=== PATIENT | female | born 1985 | race Caucasian/White ===

== ENCOUNTER 2022-07-02 16:56 | Inpatient (IN) | payer OTHER, SELFPAY ==
--- NOTE | ~2022-07-02 | CT_ITS ---
EXAMINATION: CT FOR WITH IV CONTRAST, LEFT CLINICAL INFORMATION: Rash to left forearm COMPARISON: None TECHNIQUE: 85 mL Omnipaque 350 intravenous contrast was utilized. Multidetector helical imaging was performed through the left forearm. Coronal and sagittal reformatted images were created. DOSE LOWERING TECHNIQUES: This CT examination was performed using dose optimization techniques as appropriate, variously including the following: - Automated exposure control - Adjustment of mA and/or kV according to patient size (this includes techniques or standardized protocols for targeted exams were dose is matched to indication/reason for exam; i.e. extremities or head) - Use of iterative reconstruction technique DLP: 167 mGy-cm FINDINGS: There is prominent subcutaneous edema along the dorsal forearm, especially the proximal to mid forearm with associated skin thickening, suspicious for cellulitis in the proper clinical setting. No discrete fluid collection is seen. No soft tissue gas or radiopaque foreign body identified. Osseous alignment is anatomic. No acute fracture is seen. CT/CT forearm LT w IV con IMPRESSION: Prominent subcutaneous edema along the dorsal forearm, especially the proximal to mid forearm, suspicious for cellulitis in the proper clinical setting. No discrete fluid collection identified.
[2022-07-02 17:02] VITALS: BP 127/82; PULSE 94; RESP 18; TEMP 36.7; O2SAT 97; BMI 37.0
--- NOTE | 2022-07-02 17:02 | ED_ITS ---
HPI - General Adult General Chief complaint: Skin/Abscess/Foreign Body <DEBORAH Pinzon - Last Filed: 07/02/22 18:49> Stated complaint: infection on arm? <DEBORAH Pinzon - Last Filed: 07/02/22 18:49> Time Seen by Provider: 07/02/22 20:26 <DEBORAH Pinzon Last Filed: 07/02/22 18:49> Source: patient <DEBORAH Bronson - Last Filed: 07/02/22 23:10> Mode of arrival: ambulatory <DEBORAH Bronson Last Filed: 07/02/22 23:10> Limitations: no limitations <DEBORAH Bronson Last Filed: 07/02/22 23:10> History of Present Illness HPI narrative: This is a 37-year-old female history of IV drug abuse presenting to the emergency department with complaints of infection to left arm, patient reports associated pain, swelling and warmth overlying left arm, patient tells me about 3 days ago she picked a small area of skin to her left arm was a scab, since then she thinks that got infected. She was seen yesterday at [facility] was given IV antibiotics and had an a upper extremity ultrasound done to left upper extremity, she tells me it did not show any findings. Patient was started on Bactrim and the area of cellulitis was outlined with a marker, patient reports it is getting worse despite antibiotics. While in the ED there she got IV antibotics. Unknown if patient has history of MRSA. Patient reports fevers, chills, fatigue and malaise. Denies chest pain, shortness of breath, nausea, vomiting, abdominal pain, headache, vision changes, dizziness and weakness. <DEBORAH Bronson Last Filed: 07/02/22 23:10> Related Data Home medications: Home Medications Medication Instructions Recorded Confirmed acetaminophen 500 mg tablet 1,000 mg PO QID PRN Headache 07/02/22 07/02/22 buprenorphine HCl 8 mg sublingual 2 tab sublingual DAILY 07/02/22 07/02/22 tablet ibuprofen 200 mg tablet 400 mg PO Q6H PRN Headache 07/02/22 07/02/22 <DEBORAH Pinzon Last Filed: 07/02/22 18:49> Allergies/adverse reactions: Allergies Allergy/AdvReac Type Severity Reaction Status Date / Time No Known Allergies Allergy Unverified 01/20/20 17:39 <DEBORAH Pinzon - Last Filed: 07/02/22 18:49> Review of Systems Review of Systems: Constitutional : No Weight loss, + Fever, + Chills, + F atigue, + Malaise ENT/Mouth : No sore throat, No Rhinorrhea Eyes: No Eye Pain, No Swelling, No Redness Cardiovascular : No Chest Pain, No SOB, No Dyspnea on Exertion, No Orthopnea, No Edema, No Palpitations Respiratory : No Cough, No Sputum, No Wheezing Gastrointestinal : No Nausea, No Vomiting, No Diarrhea, No Constipation, No abdominal Pain, No Hematochezia, No Melena Genitourinary : No Dysuria, No Urinary Frequency, No Hematuria, Musculoskeletal : No joint pain, No Myalgias, No Joint Swelling Skin : No Skin Lesions, + rash Neuro : No Weakness, No Numbness, No Dizziness, No Headache Psych : No Anxiety/Panic, No Depression All other systems reviewed and are negative <DEBORAH Bronson - Last Filed: 07/02/22 23:10> Yes all other systems are reviewed and are negative <DEBORAH Bronson - Last Filed: 07/02/22 23:10> [facility] Past Medical History Attestation statement: The following information was validated with the patient. <DEBORAH Bronson - Last Filed: 07/02/22 23:10> Source: old records reviewed and nursing notes reviewed <DEBORAH Bronson - Last Filed: 07/02/22 23:10> Medical History: Medical History IV drug user <DEBORAH Pinzon - Last Filed: 07/02/22 18:49> Social History Social History: Social History Advance Directives: No Advance Directives Information Provided: Yes <DEBORAH Pinzon - Last Filed: 07/02/22 18:49> Physical Exam ED Vital Signs: Vital Signs - 24 hr 07/02/22 17:02 Temperature 98.0 F Pulse Rate 94 Respiratory Rate 18 Blood Pressure 127/82 Pulse Oximetry 97 Oxygen Delivery Method Room Air BMI result Body Mass Index 37.0 <DEBORAH Pinzon - Last Filed: 07/02/22 18:49> Vital Signs - 24 hr 07/02/22 17:02 Temperature 98.0 F Pulse Rate 94 Respiratory Rate 18 Blood Pressure 127/82 Pulse Oximetry 97 Oxygen Delivery Method Room Air BMI result Body Mass Index 37.0 vss <DEBORAH Bronson - Last Filed: 07/02/22 23:10> Vital Signs - 24 hr 07/02/22 17:02 Temperature 98.0 F Pulse Rate 94 Respiratory Rate 18 Blood Pressure 127/82 Pulse Oximetry 97 Oxygen Delivery Method Room Air BMI result Body Mass Index 37.0 <Chnada Butler MD - Last Filed: 07/02/22 22:23> Appearance: Alert.? Oriented X3.? No acute distress.? Head: Normocephalic, atraumatic, no step-offs or deformities Eyes: Pupils equal, round and reactive to light.? ENT: Pharynx normal.? Neck: Normal inspection.? Neck supple.? CVS: Normal heart rate and rhythm.? Pulses normal.? Respiratory: No respiratory distress.? Breath sounds normal.? Abdomen: Soft and nontender.? Skin: Skin warm and dry.? Normal skin color.? Normal skin turgor.? Extremities: No lower extremity edema.? No calf ttp. 5/5 strength to bilateral upper and lower extremities. 3+ nonpitting edema to left forearm from left elbow to wrist. There is cellulitis with overlying warmth overlying the left forearm. Images below 2+ radial pulses equal bilateral. Capillary refill to bilateral upper extremities less than 2 seconds. No wrist drop. Left arm does appear more swollen when compared to the right arm. There is cellulitis noted to the left upper extremity. Back: No midline tenderness, no C-spine tenderness, full range of motion, no CVA tenderness bilaterally Neuro: Oriented X 3.? No motor deficit.? No sensory deficit. CN 2-12 intact <DEBORAH Bronson - Last Filed: 07/02/22 23:10> Course Course Course Narrative: RME-- 37yo F w/PMHx IVDA c/o increasing left arm pain, swelling, erythema and fever x3 days s/p picking area on skin. Admits was seen at [facility] yesterday, given IV abx and had UE US that was negative for DVT. Admits currently taking Bactrim prescribed yesterday, states area crossing lines created/increasing pain Labs including lactic/blood cultures ordered. Will request records from [facility] Received records from [facility] patient had a leukocytosis of 18.2 yesterday & Left upper extremity venous duplex ultrasound was negative for DVT <DEBORAH Pinzon - Last Filed: 07/02/22 18:49> Reevaluation(s) Reevaluation #1: CBC with leukocytosis likely secondary to cellulitis of left arm. Chemistry with no acute findings requiring intervention. Lactic negative. Coags within normal limits. Patient to be admitted to the hospitalist for further evaluation and treatment. I did order Zosyn and vanco. Hospitalist requested upper extremity CT scan which has been ordered and pending at this hola e. At this time patient will be admitted to the hospital for further evaluation and treatment. <DEBORAH Bronson - Last Filed: 07/02/22 23:10> Time: 23:09 <DEBORAH Bronson - Last Filed: 07/02/22 23:10> Medications Administered Generic Name Dose Route Start Last Admin Trade Name Freq PRN Reason Stop Dose Admin Enoxaparin Sodium 40 mg 07/02/22 22:00 07/02/22 23:01 Enoxaparin Sodium 40 Mg/0.4 Ml Syringe SUBCUT 40 mg Q24H FRED Administration Cefepime HCl 2 gm/ Sodium 50 mls @ 100 mls/hr 07/02/22 22:00 07/02/22 23:04 Chloride IV 100 mls/hr Q8H FRED Administration Discontinued Medications Generic Name Dose Route Start Last Admin Trade Name Freq PRN Reason Stop Dose Admin Piperacillin Sod/Tazobactam 50 mls @ 100 mls/hr 07/02/22 20:37 07/02/22 23:06 Sod 3.375 gm/ Sodium Chloride IV 07/02/22 21:06 100 mls/hr ONCE ONE Infusion Sodium Chloride 2,667.12 mls @ 2,667.12 mls/hr 07/02/22 21:51 07/02/22 22:45 Ns 30 ml/kg infuse over 1 hr (2667.12 ml) 07/02/22 22:50 2,667.12 mls/hr IV Administration .Q1H STA <DEBORAH Pinzon - Last Filed: 07/02/22 18:49> Medications Administered Generic Name Dose Route Start Last Admin Trade Name Freq PRN Reason Stop Dose Admin Enoxaparin Sodium 40 mg 07/02/22 22:00 07/02/22 23:01 Enoxaparin Sodium 40 Mg/0.4 Ml Syringe SUBCUT 40 mg Q24H FRED Administration Cefepime HCl 2 gm/ Sodium 50 mls @ 100 mls/hr 07/02/22 22:00 07/02/22 23:04 Chloride IV 100 mls/hr Q8H FRED Administration Discontinued Medications Generic Name Dose Route Start Last Admin Trade Name Freq PRN Reason Stop Dose Admin Piperacillin Sod/Tazobactam 50 mls @ 100 mls/hr 07/02/22 20:37 07/02/22 23:06 Sod 3.375 gm/ Sodium Chloride IV 07/02/22 21:06 100 mls/hr ONCE ONE Infusion Sodium Chloride 2,667.12 mls @ 2,667.12 mls/hr 07/02/22 21:51 07/02/22 22:45 Ns 30 ml/kg infuse over 1 hr (2667.12 ml) 07/02/22 22:50 2,667.12 mls/hr IV Administration .Q1H STA <DEBORAH Bronson - Last Filed: 07/02/22 23:10> Medications Administered Generic Name Dose Route Start Last Admin Trade Name Freq PRN Reason Stop Dose Admin Enoxaparin Sodium 40 mg 07/02/22 22:00 07/02/22 23:01 Enoxaparin Sodium 40 Mg/0.4 Ml Syringe SUBCUT 40 mg Q24H FRED Administration Cefepime HCl 2 gm/ Sodium 50 mls @ 100 mls/hr 07/02/22 22:00 07/02/22 23:04 Chloride IV 100 mls/hr Q8H FRED Administration Discontinued Medications Generic Name Dose Route Start Last Admin Trade Name Freq PRN Reason Stop Dose Admin Piperacillin Sod/Tazobactam 50 mls @ 100 mls/hr 07/02/22 20:37 07/02/22 23:06 Sod 3.375 gm/ Sodium Chloride IV 07/02/22 21:06 100 mls/hr ONCE ONE Infusion Sodium Chloride 2,667.12 mls @ 2,667.12 mls/hr 07/02/22 21:51 07/02/22 22:45 Ns 30 ml/kg infuse over 1 hr (2667.12 ml) 07/02/22 22:50 2,667.12 mls/hr IV Administration .Q1H STA <Chanda Butler MD - Last Filed: 07/02/22 22:23> Procedures EJ/Peripheral Line Arm R: Time Out Performed: No <Chanda Butler MD - Last Filed: 07/02/22 22:23> Skin Cleansed in Sterile Fashion: Yes <Chanda Butler MD - Last Filed: 07/02/22 22:23> Size (gauge): 18 <Chanda Butler MD - Last Filed: 07/02/22 22:23> IV Secured and Dressing Applied: Yes <Chanda Butler MD - Last Filed: 07/02/22 22:23> Patient Tolerated Procedure: well <Chanda Butler MD - Last Filed: 07/02/22 22:23> Additional Comments: This peripheral line was placed via ultrasound guidance <Chanda Butler MD - Last Filed: 07/02/22 22:23> Medical Decision Making Medical Decision Making [facility] Narrative: 2035 37-year-old female presents with cellulitis left upper extremity, worsening despite p.o. antibiotics. History of IV drug abuse. Unknown MRSA history. Physical exam significant for 3+ nonpitting edema to left forearm from left elbow to wrist. There is cellulitis with overlying warmth overlying the left forearm. Images in the chart. Records from [facility] were obtained and patient had a leukocytosis of 18.2 yesterday & Left upper extremity venous duplex ultrasound was negative for DVT Concerns cellulitis that has failed p.o. therapy, unlikely threatened limb, necrotizing infection, gangrene, necrosis, osteomyelitis no signs of septic joint at this time. Plan labs, blood cultures, lactic acid. Will order antibiotics. <DEBORAH Bronson - Last Filed: 07/02/22 23:10> Differential Diagnosis Differential Diagnoses: The differential diagnosis associated with the presentation includes <DEBORAH Bronson - Last Filed: 07/02/22 23:10> Concerns for cellulitis that has failed p.o. therapy, unlikely threatened limb, necrotizing infection, gangrene, necrosis, osteomyelitis no signs of septic joint at this time. <DEBORAH Bronson - Last Filed: 07/02/22 23:10> Admission/Observation Consideration of admission/observation: Escalation of care including admission/observation considered <DEBORAH Bronson - Last Filed: 07/02/22 23:10> Likely <DEBORAH Bronson - Last Filed: 07/02/22 23:10> Lab Data MDM Lab Attestation statement: I reviewed the patient's lab results. <DEBORAH Bronson - Last Filed: 07/02/22 23:10> Result Diagrams: 07/02/22 18:23 07/02/22 18:23 <DEBORAH Pinzon - Last Filed: 07/02/22 18:49> Labs: Lab Results 07/02/22 07/02/22 07/02/22 Range/Units 18:23 18:23 22:36 WBC 13.0 H (4.8-10.8) X10*3/uL RBC 4.71 (4.20-5.50) X10*6/uL Hgb 12.9 (12.0-16.0) g/dl Hct 39.2 (37.0-47.0) % MCV 83.2 (80.0-98.0) fL MCH 27.4 (27.0-33.0) pg MCHC 32.9 (31.0-35.0) g/dl RDW 13.1 (11.0-16.0) % Plt Count 214 (160-400) X10*3/uL MPV 9.9 (9.4-12.3) fL Immature Gran % (Auto) 0.3 (0.0-0.4) % Neut % (Auto) 76.1 H (45-73) % Lymph % (Auto) 16.7 L (20-40) % [place] % (Auto) 6.5 (2-11) % Eos % (Auto) 0.2 (0-4) % Baso % (Auto) 0.2 (0-2) % Lymph # (Auto) 2.2 (1.2-4.9) X10*3/uL [place] # (Auto) 0.8 (0.1-1.2) X10*3/uL Eos # (Auto) 0.0 (0.0-0.4) X10*3/uL Baso # (Auto) 0.0 (0.0-0.2) X10*3/uL Abs Immat Gran (auto) 0.04 H (0.00-0.03) X10*3/uL Absolute Neuts (auto) 9.9 H (2.0-8.3) x10*3/uL Absolute Nucleated RBC 0.000 (0.0-0.012) X10*3/uL Nucleated RBC % (auto) 0.0 (0.0-0.2) /100WBC PT 14.4 H (10.0-13.1) SEC INR 1.2 H (0.9-1.1) Sodium 136 (135-145) mmol/L Potassium 4.5 (3.3-5.1) mmol/L Chloride 106 (96-108) mmol/L Carbon Dioxide 18 L (22-29) mmol/L Anion Gap 17 (12-20) BUN 8 L (9-16) mg/dL Creatinine 0.65 (0.5-1.4) mg/dL Estim Creat Clear Calc 121.3 Estimated GFR > 60 Random Glucose 93 (60-115) mg/dL Lactic Acid (0.5-2.0) mmol/L Calcium 9.0 (8.4-10.2) mg/dL Total Bilirubin 0.4 (0.0-1.0) mg/dL Direct Bilirubin < 0.2 (0.0-0.5) mg/dL AST 24 (5-31) U/L ALT 13 (0-31) U/L Alkaline Phosphatase 103 (39-117) U/L Total Protein 7.0 (6.5-8.0) g/dL Albumin 3.8 (3.5-5.0) g/dL 07/02/22 Range/Units 22:36 WBC (4.8-10.8) X10*3/uL RBC (4.20-5.50) X10*6/uL Hgb (12.0-16.0) g/dl Hct (37.0-47.0) % MCV (80.0-98.0) fL MCH (27.0-33.0) pg MCHC (31.0-35.0) g/dl RDW (11.0-16.0) % Plt Count (160-400) X10*3/uL MPV (9.4-12.3) fL Immature Gran % (Auto) (0.0-0.4) % Neut % (Auto) (45-73) % Lymph % (Auto) (20-40) % [place] % (Auto) (2-11) % Eos % (Auto) (0-4) % Baso % (Auto) (0-2) % Lymph # (Auto) (1.2-4.9) X10*3/uL [place] # (Auto) (0.1-1.2) X10*3/uL Eos # (Auto) (0.0-0.4) X10*3/uL Baso # (Auto) (0.0-0.2) X10*3/uL Abs Immat Gran (auto) (0.00-0.03) X10*3/uL Absolute Neuts (auto) (2.0-8.3) x10*3/uL Absolute Nucleated RBC (0.0-0.012) X10*3/uL Nucleated RBC % (auto) (0.0-0.2) /100WBC PT (10.0-13.1) SEC INR (0.9-1.1) Sodium (135-145) mmol/L Potassium (3.3-5.1) mmol/L Chloride (96-108) mmol/L Carbon Dioxide (22-29) mmol/L Anion Gap (12-20) BUN (9-16) mg/dL Creatinine (0.5-1.4) mg/dL Estim Creat Clear Calc Estimated GFR Random Glucose (60-115) mg/dL Lactic Acid 1.1 (0.5-2.0) mmol/L Calcium (8.4-10.2) mg/dL Total Bilirubin (0.0-1.0) mg/dL Direct Bilirubin (0.0-0.5) mg/dL AST (5-31) U/L ALT (0-31) U/L Alkaline Phosphatase (39-117) U/L Total Protein (6.5-8.0) g/dL Albumin (3.5-5.0) g/dL <DEBORAH Pinzon - Last Filed: 07/02/22 18:49> Lab Results 07/02/22 07/02/22 07/02/22 Range/Units 18:23 18: 22:36 WBC 13.0 H (4.8-10.8) X10*3/uL RBC 4.71 (4.20-5.50) X10*6/uL Hgb 12.9 (12.0-16.0) g/dl Hct 39.2 (37.0-47.0) % MCV 83.2 (80.0-98.0) fL MCH 27.4 (27.0-33.0) pg MCHC 32.9 (31.0-35.0) g/dl RDW 13.1 (11.0-16.0) % Plt Count 214 (160-400) X10*3/uL MPV 9.9 (9.4-12.3) fL Immature Gran % (Auto) 0.3 (0.0-0.4) % Neut % (Auto) 76.1 H (45-73) % Lymph % (Auto) 16.7 L (20-40) % [place] % (Auto) 6.5 (2-11) % Eos % (Auto) 0.2 (0-4) % Baso % (Auto) 0.2 (0-2) % Lymph # (Auto) 2.2 (1.2-4.9) X10*3/uL [place] # (Auto) 0.8 (0.1-1.2) X10*3/uL Eos # (Auto) 0.0 (0.0-0.4) X10*3/uL Baso # (Auto) 0.0 (0.0-0.2) X10*3/uL Abs Immat Gran (auto) 0.04 H (0.00-0.03) X10*3/uL Absolute Neuts (auto) 9.9 H (2.0-8.3) x10*3/uL Absolute Nucleated RBC 0.000 (0.0-0.012) X10*3/uL Nucleated RBC % (auto) 0.0 (0.0-0.2) /100WBC PT 14.4 H (10.0-13.1) SEC INR 1.2 H (0.9-1.1) Sodium 136 (135-145) mmol/L Potassium 4.5 (3.3-5.1) mmol/L Chloride 106 (96-108) mmol/L Carbon Dioxide 18 L (22-29) mmol/L Anion Gap 17 (12-20) BUN 8 L (9-16) mg/dL Creatinine 0.65 (0.5-1.4) mg/dL Estim Creat Clear Calc 121.3 Estimated GFR > 60 Random Glucose 93 (60-115) mg/dL Lactic Acid (0.5-2.0) mmol/L Calcium 9.0 (8.4-10.2) mg/dL Total Bilirubin 0.4 (0.0-1.0) mg/dL Direct Bilirubin < 0.2 (0.0-0.5) mg/dL AST 24 (5-31) U/L ALT 13 (0-31) U/L Alkaline Phosphatase 103 (39-117) U/L Total Protein 7.0 (6.5-8.0) g/dL Albumin 3.8 (3.5-5.0) g/dL 07/02/22 Range/Units 22:36 WBC (4.8-10.8) X10*3/uL RBC (4.20-5.50) X10*6/uL Hgb (12.0-16.0) g/dl Hct (37.0-47.0) % MCV (80.0-98.0) fL MCH (27.0-33.0) pg MCHC (31.0-35.0) g/dl RDW (11.0-16.0) % Plt Count (160-400) X10*3/uL MPV (9.4-12.3) fL Immature Gran % (Auto) (0.0-0.4) % Neut % (Auto) (45-73) % Lymph % (Auto) (20-40) % [place] % (Auto) (2-11) % Eos % (Auto) (0-4) % Baso % (Auto) (0-2) % Lymph # (Auto) (1.2-4.9) X10*3/uL [place] # (Auto) (0.1-1.2) X10*3/uL Eos # (Auto) (0.0-0.4) X10*3/uL Baso # (Auto) (0.0-0.2) X10*3/uL Abs Immat Gran (auto) (0.00-0.03) X10*3/uL Absolute Neuts (auto) (2.0-8.3) x10*3/uL Absolute Nucleated RBC (0.0-0.012) X10*3/uL Nucleated RBC % (auto) (0.0-0.2) /100WBC PT (10.0-13.1) SEC INR (0.9-1.1) Sodium (135-145) mmol/L Potassium (3.3-5.1) mmol/L Chloride (96-108) mmol/L Carbon Dioxide (22-29) mmol/L Anion Gap (12-20) BUN (9-16) mg/dL Creatinine (0.5-1.4) mg/dL Estim Creat Clear Calc Estimated GFR Random Glucose (60-115) mg/dL Lactic Acid 1.1 (0.5-2.0) mmol/L Calcium (8.4-10.2) mg/dL Total Bilirubin (0.0-1.0) mg/dL Direct Bilirubin (0.0-0.5) mg/dL AST (5-31) U/L ALT (0-31) U/L Alkaline Phosphatase (39-117) U/L Total Protein (6.5-8.0) g/dL Albumin (3.5-5.0) g/dL <DEBORAH Bronson - Last Filed: 07/02/22 23:10> Lab Results 07/02/22 07/02/22 07/02/22 Range/Units 18:23 18:23 22:36 WBC 13.0 H (4.8-10.8) X10*3/uL RBC 4.71 (4.20-5.50) X10*6/uL Hgb 12.9 (12.0-16.0) g/dl Hct 39.2 (37.0-47.0) % MCV 83.2 (80.0-98.0) fL MCH 27.4 (27.0-33.0) pg MCHC 32.9 (31.0-35.0) g/dl RDW 13.1 (11.0-16.0) % Plt Count 214 (160-400) X10*3/uL MPV 9.9 (9.4-12.3) fL Immature Gran % (Auto) 0.3 (0.0-0.4) % Neut % (Auto) 76.1 H (45-73) % Lymph % (Auto) 16.7 L (20-40) % [place] % (Auto) 6.5 (2-11) % Eos % (Auto) 0.2 (0-4) % Baso % (Auto) 0.2 (0-2) % Lymph # (Auto) 2.2 (1.2-4.9) X10*3/uL [place] # (Auto) 0.8 (0.1-1.2) X10*3/uL Eos # (Auto) 0.0 (0.0-0.4) X10*3/uL Baso # (Auto) 0.0 (0.0-0.2) X10*3/uL Abs Immat Gran (auto) 0.04 H (0.00-0.03) X10*3/uL Absolute Neuts (auto) 9.9 H (2.0-8.3) x10*3/uL Absolute Nucleated RBC 0.000 (0.0-0.012) X10*3/uL Nucleated RBC % (auto) 0.0 (0.0-0.2) /100WBC PT 14.4 H (10.0-13.1) SEC INR 1.2 H (0.9-1.1) Sodium 136 (135-145) mmol/L Potassium 4.5 (3.3-5.1) mmol/L Chloride 106 (96-108) mmol/L Carbon Dioxide 18 L (22-29) mmol/L Anion Gap 17 (12-20) BUN 8 L (9-16) mg/dL Creatinine 0.65 (0.5-1.4) mg/dL Estim Creat Clear Calc 121.3 Estimated GFR > 60 Random Glucose 93 (60-115) mg/dL Lactic Acid (0.5-2.0) mmol/L Calcium 9.0 (8.4-10.2) mg/dL Total Bilirubin 0.4 (0.0-1.0) mg/dL Direct Bilirubin < 0.2 (0.0-0.5) mg/dL AST 24 (5-31) U/L ALT 13 (0-31) U/L Alkaline Phosphatase 103 (39-117) U/L Total Protein 7.0 (6.5-8.0) g/dL Albumin 3.8 (3.5-5.0) g/dL 07/02/22 Range/Units 22:36 WBC (4.8-10.8) X10*3/uL RBC (4.20-5.50) X10*6/uL Hgb (12.0-16.0) g/dl Hct (37.0-47.0) % MCV (80.0-98.0) fL MCH (27.0-33.0) pg MCHC (31.0-35.0) g/dl RDW (11.0-16.0) % Plt Count (160-400) X10*3/uL MPV (9.4-12.3) fL Immature Gran % (Auto) (0.0-0.4) % Neut % (Auto) (45-73) % Lymph % (Auto) (20-40) % [place] % (Auto) (2-11) % Eos % (Auto) (0-4) % Baso % (Auto) (0-2) % Lymph # (Auto) (1.2-4.9) X10*3/uL [place] # (Auto) (0.1-1.2) X10*3/uL Eos # (Auto) (0.0-0.4) X10*3/uL Baso # (Auto) (0.0-0.2) X10*3/uL Abs Immat Gran (auto) (0.00-0.03) X10*3/uL Absolute Neuts (auto) (2.0-8.3) x10*3/uL Absolute Nucleated RBC (0.0-0.012) X10*3/uL Nucleated RBC % (auto) (0.0-0.2) /100WBC PT (10.0-13.1) SEC INR (0.9-1.1) Sodium (135-145) mmol/L Potassium (3.3-5.1) mmol/L Chloride (96-108) mmol/L Carbon Dioxide (22-29) mmol/L Anion Gap (12-20) BUN (9-16) mg/dL Creatinine (0.5-1.4) mg/dL Estim Creat Clear Calc Estimated GFR Random Glucose (60-115) mg/dL Lactic Acid 1.1 (0.5-2.0) mmol/L Calcium (8.4-10.2) mg/dL Total Bilirubin (0.0-1.0) mg/dL Direct Bilirubin (0.0-0.5) mg/dL AST (5-31) U/L ALT (0-31) U/L Alkaline Phosphatase (39-117) U/L Total Protein (6.5-8.0) g/dL Albumin (3.5-5.0) g/dL <Chanda Butler MD - Last Filed: 07/02/22 22:23> Core Measures AMI core measures followed: Yes <DEBORAH Bronson - Last Filed: 07/02/22 23:10> Measure exclusions: not indicated <DEBORAH Bronson - Last Filed: 07/02/22 23:10> Critical Care Time Critical Care Time Critical Care Time: No <DEBORAH Bronson - Last Filed: 07/02/22 23:10> Discharge Plan Discharge Clinical Impression: Cellulitis <DEBORAH Pinzon - Last Filed: 07/02/22 18:49> Patient Disposition: Still a Patient <DEBORAH Pinzon - Last Filed: 07/02/22 18:49> Prescriptions: No Action acetaminophen [Tylenol Ex Str Rapid Release] 500 mg Tablet 1,000 mg PO QID PRN (Reason: Headache) ibuprofen 200 mg Tablet 400 mg PO Q6H PRN (Reason: Headache) buprenorphine HCl 8 mg tablet, sublingual 2 tab sublingual DAILY <DEBORAH Pinzon - Last Filed: 07/02/22 18:49>
[2022-07-02 18:26] LABS: MANUAL DIFF FLAG NO
[2022-07-02 18:29] LABS: Basophils Percent Auto 0.2 % (0-2); Eosinophils Percent Auto 0.2 % (0-4); Hematocrit 39.2 % (37.0-47.0); Hemoglobin 12.9 g/dl (12.0-16.0); Imm Gran Abs Auto 0.04 X10*3/uL (0.00-0.03); Imm Gran Pct Auto 0.3 % (0.0-0.4); Lymphocytes Absolute Auto 2.2 X10*3/uL (1.2-4.9); Lymphocytes Percent Auto 16.7 % (20-40); Mean Corpuscular HGB Conc 32.9 g/dl (31.0-35.0); Mean Corpuscular Hemoglobin 27.4 pg (27.0-33.0); Mean Corpuscular Volume 83.2 fL (80.0-98.0); Mean Platelet Volume 9.9 fL (9.4-12.3); Monocytes Absolute Auto 0.8 X10*3/uL (0.1-1.2); Monocytes Percent Auto 6.5 % (2-11); Neutrophils Absolute Auto 9.9 x10*3/uL (2.0-8.3); Neutrophils Percent Auto 76.1 % (45-73); Platelet Count 214 X10*3/uL (160-400); Red Blood Count 4.71 X10*6/uL (4.20-5.50); Red Cell Distribution Width 13.1 % (11.0-16.0)
[2022-07-02 18:42] LABS: Alanine Aminotransferase 13 U/L (0-31); Albumin Level 3.8 g/dL (3.5-5.0); Alkaline Phosphatase 103 U/L (39-117); Anion Gap 17 (12-20); Aspartate Amino Transferase 24 U/L (5-31); Bilirubin Direct < 0.2 mg/dL (0.0-0.5); Bilirubin Total 0.4 mg/dL (0.0-1.0); Blood Urea Nitrogen 8 mg/dL (9-16); Carbon Dioxide 18 mmol/L (22-29); Chloride 106 mmol/L (96-108); Creatinine Clr Calc Pharmacy 121.3; Estimated Glomerular Filt Rate > 60; Glucose Random 93 mg/dL (60-115); Potassium 4.5 mmol/L (3.3-5.1); Sodium 136 mmol/L (135-145)
--- NOTE | 2022-07-02 21:54 | PM.IMHP ---
History of Present Illness Date of Service: 07/02/22 Chief Complaint: Left arm infection this is a 37-year-old female with pertinent history of previous IV drug use who presents to the emergency department evaluation of left arm swelling/ pain / redness. Patient states she picked a small area of skin about 2-3 days ago and since then it has become swollen, red and tender. Patient also has been having fevers and chills at home. She was seen yesterday at [facility] and was given 1 dose of IV antibiotics and discharged on Bactrim. Patient states it has worsened even though she is compliant with oral antibiotics. No previous infections. Patient states her last IV drug use was a few years ago. Unknown history of MRSA. Patient denies nausea, vomiting, chest discomfort, palpitations, shortness of breath, abdominal pain, changes in urinary or bowel habits. In the emergency department, patient was found to be septic Review of Systems Constitutional: Constitutional: Reports chills and Reports fever(s) Cardiovascular: Cardiovascular: Reports no additional cardiovascular complaints Respiratory: Respiratory: Reports no additional respiratory complaints Gastrointestinal: Gastrointestinal: Reports no additional gastrointestinal complaints Genitourinary: Genitourinary: Reports no additional female genitourinary complaints [facility] Medical History IV drug user Functional capacity: independent ambulation Pertinent family history: no family history of CAD Social History Advance Directives: No Advance Directives Information Provided: Yes Meds Allergies Allergy/AdvReac Type Severity Reaction Status Date / Time No Known Allergies Allergy Unverified 01/20/20 17:39 Active Medications: Current Medications Acetaminophen (Acetaminophen 325 Mg Tablet) 650 mg PO Q6H PRN PRN Reason: Pain, Mild (Pain Scale 1-3) Enoxaparin Sodium (Enoxaparin Sodium 40 Mg/0.4 Ml Syringe) 40 mg SUBCUT Q24H FRED Vancomycin HCl (Vancomycin/Ns) 2,000 mg in 520 mls @ 260 mls/hr IV ONCE ONE Stop: 07/02/22 22:36 Sodium Chloride (Ns) 2,667.12 mls @ 2,667.12 mls/hr 30 ml/kg infuse over 1 hr (2667.12 ml) IV .Q1H STA Stop: 07/02/22 22:50 Melatonin (Melatonin 3 Mg Tablet) 6 mg PO BEDTIME PRN PRN Reason: Insomnia Ondansetron HCl (Ondansetron Hcl 4 Mg/2 Ml Vial) 4 mg IVPUSH Q8H PRN PRN Reason: Nausea and Vomiting Sodium Chloride (0.9 % Sodium Chloride Flush 3 Ml Syringe) 3 ml IVFLUSH QSHIFT [facility] Home Medications Medication Instructions Recorded Confirmed Last Taken Type acetaminophen 500 mg tablet 1,000 mg PO QID PRN Headache 07/02/22 07/02/22 07/02/22 History buprenorphine HCl 8 mg sublingual 2 tab sublingual DAILY 07/02/22 07/02/22 07/02/22 History tablet ibuprofen 200 mg tablet 400 mg PO Q6H PRN Headache 07/02/22 07/02/22 07/02/22 History Physical Exam Vital Signs and Narrative: Vital Signs: Last Vital Signs Temp 98.0 F 07/02/22 17:02 Pulse 94 07/02/22 17:02 Resp 18 07/02/22 17:02 BP 127/82 07/02/22 17:02 Pulse Ox 97 07/02/22 17:02 O2 Del Method 07/02/22 17:02 BMI result Body Mass Index 37.0 Middle-aged female lying in bed in no distress Neck supple, no JVD Regular rate and rhythm, S1-S2 heard Regular breath sounds bilaterally, no wheezing or crackles appreciated Abdomen soft nontender, no guarding, no rigidity Patient is awake, alert and oriented to self, place, time and person ; no focal motor deficit left arm with tenderness, erythema and swelling Psych: Normal mood No pedal edema Results Labs 07/02/22 18:23 07/02/22 18:23 Labs: Laboratory Results - last 24 hr 07/02/22 07/02/22 18:23 18:23 MCV 83.2 MCH 27.4 MCHC 32.9 RDW 13.1 Plt Count 214 MPV 9.9 Immature Gran % (Auto) 0.3 Neut % (Auto) 76.1 H Lymph % (Auto) 16.7 L [place] % (Auto) 6.5 Eos % (Auto) 0.2 Baso % (Auto) 0.2 Lymph # (Auto) 2.2 [place] # (Auto) 0.8 Eos # (Auto) 0.0 Baso # (Auto) 0.0 Abs Immat Gran (auto) 0.04 H Absolute Neuts (auto) 9.9 H Absolute Nucleated RBC 0.000 Nucleated RBC % (auto) 0.0 Anion Gap 17 Estim Creat Clear Calc 121.3 Estimated GFR > 60 Random Glucose 93 Calcium 9.0 Total Bilirubin 0.4 Direct Bilirubin < 0.2 AST 24 ALT 13 Alkaline Phosphatase 103 Total Protein 7.0 Albumin 3.8 Assessment and Plan (1) Cellulitis: Status: Acute Plan this is a 37-year-old female with pertinent history of previous IV drug use who presents to the emergency department evaluation of left arm swelling/ pain / redness. #. sepsis due to left arm cellulitis: Failed p.o. outpatient antibiotics. Will admit for broad-spectrum empiric IV antibiotics. Lactic acid and blood cultures obtained. Resuscitated with IV crystalloids. Imaging pending. Venous duplex study negative at [facility]. #. history of substance use disorder: On buprenorphine Med rec pending DVT prophylaxis: Lovenox 40 mg daily Full code Regular diet Admit as inpatient and will require two night minimum hospital stay for IV antibiotics Time Spent With Patient Time: Total time managing care of this patient today ____ minutes. Quality Stroke Does the patient have a stroke diagnosis?: No VTE Prior VTE?: No VTE Risk Level:: Medical - moderate - high VTE Device Contraindication: Treatment Not Indicated VTE Drug Contraindication: N/A - Med Ordered
--- NOTE | 2022-07-02 22:24 | PC.NURSE ---
Several attempts to place Iv by ultrasound, Iv just placed. Will continue to monitor.
--- NOTE | 2022-07-02 22:30 | PHA.PROG ---
Admission Date/Time: Indication: SKIN/STRUCTURE INFECTION Weight in k.904 kg Adjusted body weight in K.242 [place] body weight in K.8 Obesity Dosing Indication % IBW: 37.0 Serum Creatinine - Last 168 Hours 07/02/22 18:23 Creatinine 0.65 Estimated CrCl and GFR - Last 168 Hours 07/02/22 18:23 Estim Creat Clear Calc 121.3 Estimated GFR > 60 Vancomycin Loading Dose: 2000 MG Current Vancomycin Dosing Regimen: 1000 MG Q12 Vancomycin Monitoring using AUC goal of 400 - 600 range with trough as surrogate marker: EXPECT AUC 448 AFTER 4TH DOSE Date and Time for next Vancomycin Level to be drawn: 07/04 @0900 Pharmacist Comments on Vancomycin Plan: SCr is 0.65 at this time. Continue to monitor daily. Obesity model used in insight due to bmi of 37.0. Vancomycin dosing will take advantage of [employer] as a clinical decision support tool that uses Bayesian modeling to calculate individual patient's pharmacokinetic parameters and forecast the patient's drug concentration time course with the target goal AUC 24 range of 400 - 600 mg/L/hr.
[2022-07-02] MEDS: Piperacillin Sodium/Tazobactam 3.375 GM in 0.9 % Sodium Chloride 50 ML IV (22:40)
[2022-07-02] MEDS: SODIUM CHLORIDE 2667.12 ML IV (22:45)
[2022-07-02 22:51] LABS: INTERNATIONAL NORM RATIO 1.2 (0.9-1.1); Prothrombin Time 14.4 SEC (10.0-13.1)
[2022-07-02 22:56] LABS: Lactic Acid 1.1 mmol/L (0.5-2.0)
[2022-07-02] MEDS: Enoxaparin Sodium 40 MG/0.4 ML SYRINGE SUBCUT (23:01)
[2022-07-02] MEDS: cefEPime HCl 2 GM in 0.9 % Sodium Chloride 50 ML IV (23:04)
--- NOTE | 2022-07-02 23:08 | PC.NURSE ---
pt medicated per Mar, left arm red, warm and tender, area marked to monitor increase redness. pt a&o,no sob or chest pain. Will continue to monitor.
[2022-07-02 23:09] VITALS: BP 125/78; PULSE 82; RESP 13; TEMP 37.1; O2SAT 96
[2022-07-02] MEDS: iohexoL 350 MG/ML 100 ML INFUS..BTL 85 ML IV (23:41)
[2022-07-02 23:49] VITALS: BP 124/63; PULSE 85; RESP 17; TEMP 36.8; O2SAT 96
[2022-07-03 00:12] LABS: Appearance Urine Clear; Color Urine Yellow; Glucose Urine UA Negative (Negative); Leukocyte Esterase Urine Negative (Negative); Nitrite Urine Negative (Negative); Specific Gravity - Urine 1.015 (1.005-1.025); Urine Blood Negative (Negative); Urine Ketones Negative (Negative); Urine Protein Negative (Neg-Trace)
[2022-07-03 00:17] LABS: Bacteria Urine None Seen (None Seen); Hyaline Casts Urine 0-2 /LPF (0-2); RBC Urine 0-2 /HPF (0-2); Squamous Epithelial Cell Urine 0-2 /HPF (0-2); WBC Urine 0-5 /HPF (0-5)
[2022-07-03 00:45] VITALS: BP 116/64; PULSE 84; RESP 17; TEMP 36.6; O2SAT 100
--- NOTE | 2022-07-03 00:45 | PC.NURSE ---
Provider at the bedside to drain abscess area, pt medicated per mar and CT completed. Will continue to monitor. Area of infection suma, positive cms and pulse. pt able to move left arm digits.
[2022-07-03 01:22] LABS: Amphetamine Screen Urine Not Detected (Not Detect); Barbiturates, Urine Not Detected (Not Detect); Benzodiazepines Screen Urine Not Detected (Not Detect); Cannabinoid Screen Urine Not Detected (Not Detect); Cocaine Screen Urine Not Detected (Not Detect); Fentanyl, urine POSITIVE (Not Detect); Opiate Screen Urine POSITIVE (Not Detect); Phencyclidine Screen Urine Not Detected (Not Detect)
[2022-07-03 02:24] VITALS: BP 123/63; PULSE 75; RESP 18; TEMP 36.8; O2SAT 96
--- NOTE | 2022-07-03 02:39 | PC.NURSE ---
medicated per Mar, Will continue to monitor.
[2022-07-03 04:06] VITALS: BP 129/62; PULSE 72; RESP 14; TEMP 36.2; O2SAT 96
--- NOTE | 2022-07-03 04:17 | PC.NURSE ---
pt upset at waiting so long and thought she was going home. hospitalist, kiln charger and myself at the bedside with dr velasco and pt is now understanding why she needs to stay for iv antibx. pt did disclose she used drugs yesterday by nasal. pt positive for opiods and fent.
[2022-07-03 04:34] LABS: COVID-19 Test Negative (Negative); IDNOW Serial# BCCEAD1C
[2022-07-03] MEDS: cefEPime HCl 2 GM in 0.9 % Sodium Chloride 50 ML IV ×3 (05:44→21:33)
[2022-07-03 05:48] VITALS: BP 100/52; PULSE 91; RESP 16; TEMP 36.8; O2SAT 98
[2022-07-03] MEDS: 0.9 % Sodium Chloride Flush 3 ML SYRINGE IVFLUSH ×3 (07:10→21:33)
[2022-07-03 08:29] LABS: Basophils Absolute Auto 0.1 X10*3/uL (0.0-0.2); Basophils Percent Auto 0.6 % (0-2); Eosinophils Absolute Auto 0.3 X10*3/uL (0.0-0.4); Eosinophils Percent Auto 2.4 % (0-4); Hematocrit 34.1 % (37.0-47.0); Hemoglobin 11.3 g/dl (12.0-16.0); Imm Gran Abs Auto 0.14 X10*3/uL (0.00-0.03); Imm Gran Pct Auto 1.2 % (0.0-0.4); Lymphocytes Absolute Auto 2.5 X10*3/uL (1.2-4.9); Lymphocytes Percent Auto 21.7 % (20-40); MANUAL DIFF FLAG SCAN; Mean Corpuscular HGB Conc 33.1 g/dl (31.0-35.0); Mean Corpuscular Hemoglobin 27.8 pg (27.0-33.0); Monocytes Absolute Auto 1.2 X10*3/uL (0.1-1.2); Monocytes Percent Auto 10.5 % (2-11); Neutrophils Absolute Auto 7.2 x10*3/uL (2.0-8.3); Neutrophils Percent Auto 63.6 % (45-73); PLT CLUMP 1; Red Blood Count 4.06 X10*6/uL (4.20-5.50); Red Cell Distribution Width 13.3 % (11.0-16.0); SCAN SMEAR FLAG 1
[2022-07-03 08:37] LABS: Creatinine Clr Calc Pharmacy 123.2; Estimated Glomerular Filt Rate > 60
[2022-07-03 08:39] LABS: Anion Gap 13 (12-20); Blood Urea Nitrogen 7 mg/dL (9-16); Calcium 8.2 mg/dL (8.4-10.2); Carbon Dioxide 20 mmol/L (22-29); Chloride 112 mmol/L (96-108); Creatinine Clr Calc Pharmacy 123.2; Estimated Glomerular Filt Rate > 60; Glucose Random 90 mg/dL (60-115); Potassium 4.8 mmol/L (3.3-5.1); Sodium 140 mmol/L (135-145)
[2022-07-03 09:20] LABS: Platelet Count 164 X10*3/uL (160-400); White Blood Count 11.4 X10*3/uL (4.8-10.8)
[2022-07-03 09:21] LABS: SLIDE REVIEW VERIFIED
--- NOTE | 2022-07-03 09:35 | MHC.CM.PN ---
PT REPORTS SHE LIVES WITH HER PARENTS SHE SAYS SHE IS INDEPENDENT WORKS AND DRIVES SHE HAS NO DME OR HOME SERVICES PT REPORTS SHE IS COVID VAX SHE DECLINES TO COMPLETE A HCP SHE DOES NOT KNOW THE NAME OF HER PCP, BUT SAYS SHE [facility] [place] [facility] TBD PENDING PTS TREATMENT COURSE AND RECOVERY TEAM CONSULT PTS STATED GOAL IS TO DC HOME WITH NO SERVICES VIA FAMILY TRANSPORT
[2022-07-03 11:19] VITALS: BP 150/97; PULSE 86; RESP 20; O2SAT 100
[2022-07-03] MEDS: vancomycin HCL 1,000 MG in 0.9 % Sodium Chloride 250 ML 270 MG IV ×2 (11:20→23:05)
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
--- NOTE | 2022-07-03 12:15 | MHC.RECOVRN ---
Attempted to meet with pt in [facility] after consult placed to Addiction Medicine for opioid use. Upon introducing myself and role, pt states Thank you but no thank you. I'm not interested. Was able to briefly engage pt, pt reports Subutex is not particularly helpful and alternates using substances and taking medication. Pt reports declining medication today due to risk for precipitated withdrawal. Pt educated on microdosing and options if precipitated withdrawal were to occur. Pt reports positive effect with methadone for years but due to work hours was unable to continue. Pt declines recovery support/resources at this time. Encouraged to reach out to t/w if questions or concerns arise. Lalita Urbina APRN, aware.
--- NOTE | 2022-07-03 12:24 | PC.NURSE ---
pt a &o x4 resting quietly watching her phone, resecured pt IV, vancomycin still infusing at this time. call schumacher within reach
--- NOTE | 2022-07-03 15:13 | P.EN_ITS ---
Event Note Date of Service: 07/03/22 Event Note: Addiction consult placed Please see camp director note dated 07/03/2022 Time Spent With Patient Time: Total time managing care of this patient today ____ minutes.
--- NOTE | 2022-07-03 15:13 | PM.EVENT ---
Event Note Date of Service: 07/03/22 Event Note: Addiction consult placed Please see first aid teacher note dated 07/03/2022 Time Spent With Patient Time: Total time managing care of this patient today ____ minutes.
--- NOTE | 2022-07-03 19:30 | PC.NURSE ---
Addendum entered by Ann-Marie Koehler LPN 07/03/22 19:35: reached out to , provider aware that pt desires to leave. requested for consult at bedside Original Note: pt was assigned to bed 371 attempted to put belongings list together for patient and was advised My kids are having a really hard time without me, I'll stay for the 10pm dose
--- NOTE | 2022-07-03 19:50 | PC.NURSE ---
attempted to call report to floor x 2 with 30 minutes between each call. did not connect with nurse. patient to be brought up to floor per policy.
[2022-07-03 20:00] VITALS: BP 121/66; PULSE 84; RESP 16; TEMP 36.3; O2SAT 99
[2022-07-03 20:20] VITALS: BMI 37.0
[2022-07-03] MEDS: Enoxaparin Sodium 40 MG/0.4 ML SYRINGE SUBCUT (21:33)
[2022-07-04 04:00] VITALS: BP 134/63; PULSE 74; RESP 18; TEMP 36.2; O2SAT 98
[2022-07-04] MEDS: cefEPime HCl 2 GM in 0.9 % Sodium Chloride 50 ML IV (05:44)
[2022-07-04 06:25] LABS: Creatinine Clr Calc Pharmacy 117.6; Estimated Glomerular Filt Rate > 60
[2022-07-04] MEDS: 0.9 % Sodium Chloride Flush 3 ML SYRINGE IVFLUSH (07:51)
[2022-07-04 08:00] VITALS: BP 107/57; PULSE 62; RESP 18; TEMP 36.6; O2SAT 97
[2022-07-04 09:31] LABS: Vancomycin Trough 9.9 mcg/mL (10.0-20.0)
--- NOTE | 2022-07-04 09:43 | HE.PHANOTE ---
RE: vanco Trough on 07/04 came back at 9.9; increased dose to 1250mg Q12H with predicted AUC 444mg/L, trough 9.2. Next level to be drawn after two doses on 07/05 @0900
[2022-07-04] MEDS: vancomycin HCL 1,250 MG in 0.9 % Sodium Chloride 250 ML 166.67 MG IV (11:02)
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
--- NOTE | 2022-07-04 13:10 | MHC.CM.PN ---
PATIENT IS DC HOME - SELF CARE. RN AWARE OF PLAN
== END 2022-07-04 15:01 | disposition home or self-care (01) | DRG 720 ==
LOC: HO.ED 23:10 → HO.EDOVER 23:50 → HO.S3 07-03 18:57
PROVIDERS: Physician Assistant; Admitting Provider Student in an Organized Health Care Education/Training Program; Emergency Provider Student in an Organized Health Care Education/Training Program; Visit Provider Hospitalist
DX: A41.9 Sepsis, unspecified organism (principal); F11.20 Opioid dependence, uncomplicated; L03.114 Cellulitis of left upper limb; Z20.822 Contact with and (suspected) exposure to COVID-19
CPT/HCPCS: 36415; 73201; 80048; 80076; 80202; 80307; 81001; 82565; 83605; 85025; 85610; 87040; 87147; 87205; 87635; 99221; 99285; J0692; J1650; J2543; J3370; J3371; Q9967